=== PATIENT | male | born 1950 | race Caucasian/White ===

== ENCOUNTER → 2018-06-21 17:35 | Outpatient (CLI) | payer MEDICARE, OTHER, SELFPAY ==
--- NOTE | 2018-06-21 17:42 | CT_ITS ---
STUDY: LOW DOSE CT LUNG CANCER SCREENING REASON FOR EXAM: Male, 68 years old. 55 pack-year smoking history. RADIATION DOSAGE (If Supplied By Facility): CTDIvol = ( 2.55 ) mGy, DLP = ( 95.06 ) mGycm TECHNIQUE: No contrast was administered. Low dose technique was utilized (average mAS-38 and kVp 120). 1.25 mm axial source images with a slice interval of 1.25-mm were reconstructed in lung windows. 2.5 mm axial source images with a slice interval of 2.5-mm were reconstructed in lung windows. 5.0 mm axial source images with a slice interval of 5.0-mm were reconstructed in soft tissue windows. Nodule measured using lung windows on PACS and/or independent workstation with automated measurement of minimum and maximum diameter. Nodule measurement reported as average diameter rounded to the nearest whole number. Growth is defined as an increase ins size of greater than 1.5 mm. COMPARISON: None. NODULES: Nodule #: 1 Density: Solid Lung location: Left upper lobe: 2.3 cm from pleura Location in series: Series Number: [id number] Image: 66 Size - D1 x D2 mm: 5 x 5 mm: 5 mm average diameter Margin: Smooth Shape: Round Calcification: Yes Fat: No Temporal comparison: None Nodule #: 2 Density: Solid Lung location: Right lower lobe: 3.8 cm from pleura Location in series: Series Number: [id number] Image: 31 Size - D1 x D2 mm: 3 x 3 mm: 3 mm average diameter Margin: Smooth Shape: Round Calcification: Yes Fat: No Temporal comparison: None Total lung nodules (excluding granulomas): 0 Emphysema: There are diffuse emphysematous changes of the lungs. Endobronchial lesion: No Aorta: Is atherosclerotic tortuosity of the thoracic aorta without aneurysm. Coronary arteries: Normal Heart: Normal Pulmonary artery: Normal Mediastinal nodes: There are bilateral hilar calcified lymph nodes. There is a calcified subcarinal lymph node. Other chest and abdominal findings: Mild degenerative changes of the thoracic spine. CT/Low Dose CT Lung Screening IMPRESSION: Lung-RADS category 1 - Continue annual screening with LDCT in 12 months. IMPORTANT NOTES FOR USE: ACR Lung-RADS Version 1.0 Assessment Categories Release Date: August 26, 2013 Category: Coded 0-4 bases on nodule(s) with highest degree of suspicion. Negative screen is defined as categories 1 and 2; a positive screen is defined as categories 3 and 4. Category 3 and 4A nodules that are unchanged on interval CT should be coded as category 2, and individuals returned to screening in 12 months. Category 4X: Category 3 or 4 nodules with additional imaging findings that increase the suspicion of lung cancer, such as spiculation, GGN that doubles in size in 1 year, enlarged lymph notes, etc. Category Modifiers: S (significant finding unrelated to lung cancer) and C (prior history of treated lung cancer) may be added to the 0-4 Lung-RADS Electronically Signed: Yuniel Zaidi DO at 11:20 EST Tel [phone], Service support ,
== END ==
PROVIDERS: Family Provider Family Medicine; PCP Family Medicine; Referring Provider Internal Medicine Pulmonary Disease; Visit Provider Internal Medicine Pulmonary Disease
DX: Z87.891 Personal history of nicotine dependence (principal)
CPT/HCPCS: G0297

== ENCOUNTER → 2019-08-06 13:42 | Outpatient (CLI) | payer MEDICARE, OTHER, SELFPAY ==
--- NOTE | 2019-08-06 13:49 | CT_ITS ---
STUDY: LOW DOSE CT LUNG CANCER SCREENING REASON FOR EXAM: Male, 69 years old. PT STATED SMOKER 1.5PPD X 55 YEARS RADIATION DOSAGE (If Supplied By Facility): CTDIvol = ( 3.02 ) mGy, DLP = ( 126.82 ) mGycm TECHNIQUE: No contrast was administered. Low dose technique was utilized (average mAS-38 and kVp 120). 1.25 mm axial source images with a slice interval of 1.25-mm were reconstructed in lung windows. 2.5 mm axial source images with a slice interval of 2.5-mm were reconstructed in lung windows. 5.0 mm axial source images with a slice interval of 5.0-mm were reconstructed in soft tissue windows. Nodule measured using lung windows on PACS and/or independent workstation with automated measurement of minimum and maximum diameter. Nodule measurement reported as average diameter rounded to the nearest whole number. Growth is defined as an increase ins size of greater than 1.5 mm. COMPARISON: Comparison is made with prior study dated June 21, 2018. NODULES: Stable 5 mm calcified granuloma in the posterior medial aspect of the left upper lobe as seen on axial image #78. Stable 6.2 mm noncalcified nodule in the posterior aspect of the right upper lobe abutting the right minor fissure as seen on axial image #172. Emphysema: Stable emphysematous changes with left formation worse in the upper lobes. Stable bilateral apical scarring. Hyperinflation. Endobronchial lesion: None Aorta: Unremarkable Coronary arteries: Unremarkable Heart: Unremarkable Mediastinal nodes: Calcified right subcarinal lymph nodes. Other chest and abdominal findings: Mild degenerative changes of the thoracic spine. CT/Low Dose CT Lung Screening IMPRESSION: Lung-RADS category 2 - Continue annual screening with LDCT in 12 months. IMPORTANT NOTES FOR USE: ACR Lung-RADS Version 1.0 Assessment Categories Release Date: August 26, 2013 Category: Coded 0-4 bases on nodule(s) with highest degree of suspicion. Negative screen is defined as categories 1 and 2; a positive screen is defined as categories 3 and 4. Category 3 and 4A nodules that are unchanged on interval CT should be coded as category 2, and individuals returned to screening in 12 months. Category 4X: Category 3 or 4 nodules with additional imaging findings that increase the suspicion of lung cancer, such as spiculation, GGN that doubles in size in 1 year, enlarged lymph notes, etc. Category Modifiers: S (significant finding unrelated to lung cancer) and C (prior history of treated lung cancer) may be added to the 0-4 Lung-RADS Electronically Signed: Colten Mandel, at 14:29 EDT , Service support ,
== END ==
PROVIDERS: PCP Family Medicine; Referring Provider Internal Medicine Pulmonary Disease; Visit Provider Internal Medicine Pulmonary Disease
DX: Z87.891 Personal history of nicotine dependence (principal)
CPT/HCPCS: G0297

== ENCOUNTER → 2020-08-05 12:42 | Outpatient (CLI) | payer MEDICARE, OTHER, SELFPAY ==
--- NOTE | 2020-08-05 12:45 | CT_ITS ---
STUDY: LOW DOSE CT LUNG CANCER SCREENING REASON FOR EXAM: Male, 70 years old. COPD. One pack per day smoker for 55 years. RADIATION DOSAGE (If Supplied By Facility): CTDIvol = ( 2.34 ) mGy, DLP = ( 83.48 ) mGycm TECHNIQUE: Transaxial imaging was performed without the administration of intravenous contrast material. Individualized dose optimization techniques were used for this CT. COMPARISON: 06/21/2018 and 08/06/2019 CT chest. FINDINGS: Heart and great vessels: Heart size normal. No aneurysm of the thoracic aorta. Lungs, pleura, airways: 5 mm solid nodule with surrounding groundglass opacity in the central aspect of the right upper lobe series 2 image 123, new compared to 06/21/2018 but similar to 08/06/2019. No other noncalcified nodules. Several calcified pulmonary granulomas again demonstrated. Severe emphysema with hyperinflation and loss of lung parenchyma, particularly in the upper lungs. Mediastinum: No adenopathy or mass or hematoma. Several calcified mediastinal lymph nodes similar to previous. Osseous:No fracture or acute osseous abnormality. Chest wall: No concerning findings. Upper abdomen: No acute findings. CT/Low Dose CT Lung Screening IMPRESSION: Mixed groundglass and solid nodule in the right upper lobe not significantly changed compared to one year ago. Lung BIRADS Category 2. Continued annual surveillance recommended. IMPORTANT NOTES FOR USE: ACR Lung-RADS Version 1.1 Assessment Categories Release Date: 2018 Category: Coded 0-4 bases on nodule(s) with highest degree of suspicion. Negative screen is defined as categories 1 and 2; a positive screen is defined as categories 3 and 4. Category 3 and 4A nodules that are unchanged on interval CT should be coded as category 2, and individuals returned to screening in 12 months. Category 4X: Category 3 or 4 nodules with additional imaging findings that increase the suspicion of lung cancer, such as spiculation, GGN that doubles in size in 1 year, enlarged lymph notes, etc. Category Modifiers: S (significant finding unrelated to lung cancer) Electronically Signed: Jadiel Mathis MD at 23:30 EDT Tel , Service support ,
== END ==
PROVIDERS: PCP Family Medicine; Referring Provider Internal Medicine Pulmonary Disease; Visit Provider Internal Medicine Pulmonary Disease
DX: Z87.891 Personal history of nicotine dependence (principal)
CPT/HCPCS: 71271

== ENCOUNTER 2021-08-05 12:42 | Outpatient (CLI) | payer MEDICARE, SELFPAY ==
--- NOTE | 2021-08-05 12:52 | CT_ITS ---
STUDY: LOW DOSE CT LUNG CANCER SCREENING REASON FOR EXAM: Male, 71 years old. Former smoker. Patient smoked 1 pack per day for 56 years. RADIATION DOSAGE (If Supplied By Facility): CTDIvol = ( 2.01 ) mGy, DLP = ( 80.52 ) mGycm TECHNIQUE: No contrast was administered. Low dose technique was utilized (average mAS-38 and kVp 120). 1.25 mm axial source images with a slice interval of 1.25-mm were reconstructed in lung windows. 2.5 mm axial source images with a slice interval of 2.5-mm were reconstructed in lung windows. 5.0 mm axial source images with a slice interval of 5.0-mm were reconstructed in soft tissue windows. Nodule measured using lung windows on PACS and/or independent workstation with automated measurement of minimum and maximum diameter. Nodule measurement reported as average diameter rounded to the nearest whole number. Growth is defined as an increase ins size of greater than 1.5 mm. COMPARISON: Comparison is made with prior study dated 08/05/2020. NODULES: No suspicious nodules seen. Emphysema: Hyperinflation. Diffuse emphysematous changes with centrilobular emphysema worse in the upper lobes. Stable scarring at the lung apices likely more prominent on the right side. Stable minimal increased linear markings in the lateral aspect of the right middle lobe suggestive of scarring. Endobronchial lesion: None Aorta: Atherosclerotic plaque formation. Coronary arteries: Mild degree of coronary artery calcification. Heart: Unremarkable Pulmonary artery: Unremarkable Mediastinal nodes: Calcified right hilar and subcarinal lymph nodes. Other chest and abdominal findings: CT/Low Dose CT Lung Screening IMPRESSION: Lung-RADS category 2 - Continue annual screening with LDCT in 12 months. IMPORTANT NOTES FOR USE: ACR Lung-RADS Version 1.1 Assessment Categories Release Date: 2018 Category: Coded 0-4 bases on nodule(s) with highest degree of suspicion. Negative screen is defined as categories 1 and 2; a positive screen is defined as categories 3 and 4. Category 3 and 4A nodules that are unchanged on interval CT should be coded as category 2, and individuals returned to screening in 12 months. Category 4X: Category 3 or 4 nodules with additional imaging findings that increase the suspicion of lung cancer, such as spiculation, GGN that doubles in size in 1 year, enlarged lymph notes, etc. Category Modifiers: S (significant finding unrelated to lung cancer) Electronically Signed: Colten Mandel MD at 13:36 EDT ,
== END 2021-08-05 23:59 | disposition home or self-care (01) ==
PROVIDERS: PCP Family Medicine; Referring Provider Internal Medicine Pulmonary Disease; Visit Provider Internal Medicine Pulmonary Disease
DX: Z87.891 Personal history of nicotine dependence (principal)
CPT/HCPCS: 71271

== ENCOUNTER → 2022-07-25 | Outpatient (CLI) | payer MEDICARE, MEDICAID, SELFPAY ==
--- NOTE | 2022-07-25 11:44 | NM_ITS ---
CLINICAL: 72-year-old male with history of early satiety. SEMI-SOLID PHASE 99m Tc SULFUR COLLOID GASTRIC EMPTYING STUDY COMPARISON: None available FINDINGS: The patient was administered 1.1 mCi of 99m Tc sulfur colloid mixed with oatmeal and consumed per os. Image acquisitions in the anterior-posterior projections were obtained for 60 minutes. There is prompt visualization of the stomach. There is no gastroesophageal reflux identified. The T ? raw data emptying was calculated to be 26.90 minutes, (Normal: 12-56 minutes). NM/Gastric Emptying Study IMPRESSION: 1. NORMAL 99m Tc sulfur colloid semi-solid phase (oatmeal) gastric emptying imaging examination. A. There is normal and preserved semi-solid phase gastric emptying compared to normal controls. (Afua et al, J Nucl Med Tech 38: 186, 2010). Electronically Signed: Bobby Bowden, at 19:59 EDT ,
== END | disposition home or self-care (01) ==
LOC: NM 11:44
PROVIDERS: PCP Physician Assistant; Visit Provider Nurse Practitioner Adult Health
DX: R68.81 Early satiety (principal)
CPT/HCPCS: 78264; A9541

== ENCOUNTER → 2022-09-13 | Outpatient (CLI) | payer MEDICARE, MEDICAID, SELFPAY ==
--- NOTE | 2022-09-13 07:11 | CT_ITS ---
STUDY: LOW DOSE CT LUNG CANCER SCREENING REASON FOR EXAM: Male, 72 years old. 79 pack-year smoking history. Active smoker. COPD. RADIATION DOSAGE (If Supplied By Facility): CTDIvol = ( 3.02 ) mGy, DLP = ( 116.26 ) mGycm TECHNIQUE: No contrast was administered. Low dose technique was utilized (average mAS-38 and kVp 120). 1.25 mm axial source images with a slice interval of 1.25-mm were reconstructed in lung windows. 2.5 mm axial source images with a slice interval of 2.5-mm were reconstructed in lung windows. 5.0 mm axial source images with a slice interval of 5.0-mm were reconstructed in soft tissue windows. COMPARISON: August 05, 2021 NODULES: There is a stable 6 mm calcified granuloma in the left upper lobe image 68 of series 2. Total lung nodules (excluding granulomas): 0 Emphysema: Marked emphysematous changes without new infiltrate. Endobronchial lesion: None Aorta: Minimal stable atherosclerotic changes without aneurysm. CORONARY ARTERIES: Minimal coronary artery calcifications. Heart: Normal Pulmonary artery: Normal Mediastinal nodes: Calcified subcarinal and bilateral hilar lymphadenopathy. Other chest and abdominal findings: CT/Low Dose CT Lung Screening IMPRESSION: Lung-RADS category 1 - Continue annual screening with LDCT in 12 months. IMPORTANT NOTES FOR USE: ACR Lung-RADS Version 1.1 Assessment Categories Release Date: 2018 Category: Coded 0-4 bases on nodule(s) with highest degree of suspicion. Negative screen is defined as categories 1 and 2; a positive screen is defined as categories 3 and 4. Category 3 and 4A nodules that are unchanged on interval CT should be coded as category 2, and individuals returned to screening in 12 months. Category 4X: Category 3 or 4 nodules with additional imaging findings that increase the suspicion of lung cancer, such as spiculation, GGN that doubles in size in 1 year, enlarged lymph notes, etc. Category Modifiers: S (significant finding unrelated to lung cancer) Electronically Signed: Yuniel Zaidi DO at 17:57 EDT Reading Location ID and State: [address] [place] [address] Tel [phone], Service support ,
== END | disposition home or self-care (01) ==
LOC: CT 07:10
PROVIDERS: PCP Physician Assistant; Referring Provider Internal Medicine Pulmonary Disease; Visit Provider Internal Medicine Pulmonary Disease
DX: Z87.891 Personal history of nicotine dependence (principal)
CPT/HCPCS: 71271

== ENCOUNTER → 2023-10-13 | Outpatient (CLI) | payer MEDICARE, MEDICAID, SELFPAY ==
--- NOTE | 2023-10-13 06:35 | CT_ITS ---
STUDY: LOW DOSE CT LUNG CANCER SCREENING REASON FOR EXAM: Male, 73 years old. NICOTINE DEPENDENCE. Patient smoked 1-1/2 packs per day for 61 years. COPD. Shortness of breath. RADIATION DOSAGE (If Supplied By Facility): CTDIvol = ( 2.01 ) mGy, DLP = ( 80.02 ) mGycm TECHNIQUE: No contrast was administered. Low dose technique was utilized (average mAS-38 and kVp 120). 1.25 mm axial source images with a slice interval of 1.25-mm were reconstructed in lung windows. 2.5 mm axial source images with a slice interval of 2.5-mm were reconstructed in lung windows. 5.0 mm axial source images with a slice interval of 5.0-mm were reconstructed in soft tissue windows. COMPARISON: Comparison is made with prior study dated September 13, 2022. NODULES: There is a stable 6 mm calcified granuloma in the left upper lobe. Emphysema: Hyperinflation. Diffuse emphysematous changes more prominent in the upper lobes and in the right upper lobe with bullous formation. Endobronchial lesion: None Aorta: Atherosclerotic calcification of the aortic arch. CORONARY ARTERIES: Coronary artery calcification mild coronary artery calcification. Heart: Unremarkable Pulmonary artery: Unremarkable Mediastinal nodes: Calcified subcarinal and bilateral hilar lymph nodes. Other chest and abdominal findings: CT/Low Dose CT Lung Screening IMPRESSION: Lung-RADS category 2 - Continue annual screening with LDCT in 12 months. IMPORTANT NOTES FOR USE: ACR Lung-RADS Version 1.1 Assessment Categories Release Date: 2018 Category: Coded 0-4 bases on nodule(s) with highest degree of suspicion. Negative screen is defined as categories 1 and 2; a positive screen is defined as categories 3 and 4. Category 3 and 4A nodules that are unchanged on interval CT should be coded as category 2, and individuals returned to screening in 12 months. Category 4X: Category 3 or 4 nodules with additional imaging findings that increase the suspicion of lung cancer, such as spiculation, GGN that doubles in size in 1 year, enlarged lymph notes, etc. Category Modifiers: S (significant finding unrelated to lung cancer) Electronically Signed: Colten Mandel MD at 10:00 EDT ,
== END | disposition home or self-care (01) ==
PROVIDERS: PCP Physician Assistant; Referring Provider Internal Medicine Pulmonary Disease; Visit Provider Internal Medicine Pulmonary Disease
DX: Z87.891 Personal history of nicotine dependence (principal)
CPT/HCPCS: 71271

== ENCOUNTER → 2025-02-11 | Outpatient (CLI) | payer MEDICARE, SELFPAY ==
--- NOTE | 2025-02-11 06:05 | CT_ITS ---
PROCEDURE: LOW DOSE CT LUNG SCREENING 02/11/2025 REASON FOR EXAM: NICOTINE DEPENDENCE Current smoker, 1.25 packs per day for 61 years TECHNIQUE: Procedure Code: CT LUNG SCREEN Modality: CT Procedure: LOW DOSE CT LUNG SCREENING Coronal and Sagittal reconstruction series were provided. One or more dose reduction techniques were used (e.g., Automated exposure control, adjustment of the mA and/or kV according to patient size, use of iterative reconstruction technique). RADIATION DOSE SUMMARY: CTDlvol: 3 mGy DLP: 117 mGycm COMPARISON: None FINDINGS: Hardware: Lymph Nodes:None appear enlarged. Some calcified granulomas are shown in the right lower paratracheal, subcarinal, bilateral hilar and bilateral interlobar regions. Heart and Vasculature:Normal-size. No pericardial effusion.[id number] atherosclerotic plaque of the aorta. Coronary Artery Calcifications: Moderate atherosclerotic plaque LAD and mild plaque at the circumflex. Lungs and Airways: Severe upper lobe predominant emphysema is present. Within the inferior right upper lobe there is a spiculated nodule measuring 1.0 x 1.5 x 1.5 cm (solid component is greater than 8 mm). Pleura:No pleural effusion or pneumothorax. Upper Abdomen:Grossly unremarkable Bones:Degenerative change upper lumbar spine partially imaged. CT/Low Dose CT Lung Screening IMPRESSION: 1. Severe emphysema 2. Spiculated nodule inferior right upper lobe maximal dimension 15 mm. ACR Andressa ng-RADS guidelines suggest the following: Category 4B (Very Suspicious). Diagnostic chest CT with or without contrast; PET/CT may be considered if there is a=8mm(=268mm3) solid nodule or solid component; tissue sampling; and/or referral for further clinica l evaluation. Management depends on clinical evaluation, patient preference, and the probability of malignancy. Coronary artery calcification (CAC) is present Reading Location: [id number]
== END | disposition home or self-care (01) ==
PROVIDERS: PCP Physician Assistant; Referring Provider Internal Medicine Pulmonary Disease; Visit Provider Internal Medicine Pulmonary Disease
DX: Z87.891 Personal history of nicotine dependence (principal)
CPT/HCPCS: 71271

== ENCOUNTER → 2025-03-04 | Outpatient (CLI) | payer MEDICARE, SELFPAY ==
--- NOTE | 2025-03-04 12:00 | PET_ITS ---
PROCEDURE: PET/PET/CT Tumor Base -Thigh Init
== END | disposition home or self-care (01) ==
LOC: ONC 11:47
PROVIDERS: PCP Physician Assistant
DX: R91.1 Solitary pulmonary nodule (principal)
CPT/HCPCS: 78815; A9552

== ENCOUNTER → 2025-04-01 | Outpatient (CLI) | payer MEDICARE, SELFPAY ==
[2025-04-03 05:07] LABS: QNTFERON TB Mitogen Value > 10.00 IU/mL (.); QNTFERON TB Nil Value 0.04 IU/mL (.); QNTFERON TB1+ Ag Value 0.05 IU/mL (.); QNTFERON TB2+ Ag Value 0.06 IU/mL (.); QNTIFERON TB Positive Criteria Negative (Negative)
== END | disposition home or self-care (01) ==
LOC: CIMLAB 15:16
PROVIDERS: PCP Physician Assistant; Referring Provider Internal Medicine Pulmonary Disease; Visit Provider Internal Medicine Pulmonary Disease
DX: R06.02 Shortness of breath (principal); R91.1 Solitary pulmonary nodule
CPT/HCPCS: 36415; 86480